=== PATIENT | female | born 1985 | race Two or more races ===

== ENCOUNTER 2018-01-04 20:55 | Observation (INO) | payer MEDICAID ==
[~2018-01-04] VITALS: Ht 157.5 cm; Wt 101.6 kg
[2018-01-04] MEDS ORDERED: LACTATED RINGER'S 1,000 ML IV SCH (22:13)
[2018-01-04] MEDS ORDERED: LACTATED RINGER'S 1,000 ML IV ONE (22:13)
[2018-01-05 04:33] LABS: Alcohol, Urine < 3.0 mg/dL (0-5); Amphetamine Screen, Urine NEGATIVE (NEGATIVE); Barbiturate Scree,Urine NEGATIVE (NEGATIVE); Benzodiazephine Screen, Urine NEGATIVE (NEGATIVE); Cannabinoid Screen, Urine NEGATIVE (NEGATIVE); Cocaine Screen, Urine NEGATIVE (NEGATIVE); Opiate Scree,Urine NEGATIVE (NEGATIVE); Phencyclidine Screen, Urine NEGATIVE (NEGATIVE)
[2018-01-18] MEDS ORDERED: PREN-145 OR (09:56)
== END 2018-01-05 01:42 | disposition home or self-care (01) | DRG 566 ==
LOC: LDRP 20:55
PROVIDERS: ADMIT Obstetrics & Gynecology; ATTEND Obstetrics & Gynecology
DX: O99.283 Endocrine, nutritional and metabolic diseases complicating pregnancy, third trimester (principal); E86.0 Dehydration; O26.893 Other specified pregnancy related conditions, third trimester; R51 Headache; M54.9 Dorsalgia, unspecified; R10.2 Pelvic and perineal pain; Z3A.35 35 weeks gestation of pregnancy; Z87.891 Personal history of nicotine dependence
CPT/HCPCS: 59025; 76818; 80307; 81002; G0378

== ENCOUNTER 2019-02-10 19:34 | Observation (INO) | payer MEDICAID ==
[~2019-02-10 19:34] MED LIST: PREN-145 OR
[2019-02-10 21:17] LABS: Basophils # (auto) 0 uL; Basophils % (auto) 0.4 % (0.0-2.0); Eosinophils # (auto) 0.1 uL; Eosinophils % (auto) 1.6 % (0.0-7.0); Hemoglobin 11.7 g/dL (12.2-16.2); Lymphocytes # (auto) 1.8 uL; Lymphocytes % (auto) 19.7 % (10.0-50.0); Mean Corpuscular Hemoglobin 31.4 pg (28.0-32.0); Mean Corpuscular Hgb Conc. 34.3 g/dL (32.0-36.0); Mean Corpuscular Volume 91.4 fL (80.0-100.0); Monocytes # (auto) 0.7 uL; Monocytes % (auto) 7.8 % (0.0-12.0); Neutrophils # (auto) 6.5 uL; Neutrophils % (auto) 70.5 % (37.0-80.0); Platelet Count (auto) 250 10^3/uL (140-450); Red Blood Cells 3.72 10^6/uL (4.0-5.20); Red Cell Distribution Width 13.5 % (11.8-14.3); White Blood Cell 9.2 10^3/uL (4.4-10.8)
[2019-02-12 07:11] LABS: RPR Non Reactive (Non Reactive)
== END 2019-02-10 21:29 | disposition home or self-care (01) | DRG 566 ==
LOC: LDRP 19:34
PROVIDERS: ADMIT Specialist; ATTEND Specialist
DX: O26.893 Other specified pregnancy related conditions, third trimester (principal); Z3A.37 37 weeks gestation of pregnancy; Z87.891 Personal history of nicotine dependence
CPT/HCPCS: 36415; 59025; 81002; 85025; 86592; 87081; G0378